=== PATIENT | male | born 1950 | race Caucasian/White ===

== ENCOUNTER 2018-04-22 07:33 | Inpatient (IN) ==
--- NOTE | 2018-04-08 12:38 | Anesthesiology Consultation ---
Date of Service April 08, 2018 Assessment & Plan (1) Encounter for pre-operative examination: Chart Review Chart Review: Acceptable Risk for Surgery and Patient seen in Pre Admission Testing Consults Requested medical (Dr. Wild at [facility] on 04/19 @10:15) Patient was seen at PCP's office on 04/19. Note states "Pt is stable from medical perspective to undergo planned procedure." Teaching & Discussion Pre-Anesthesia Teaching/Discussion Notes: Instructed NPO after midnight before surgery, except medications with 15 cc of water. Medication instructions provided according to the PAT guidelines. History Surgery Operation Date: 04/22/18 09:35 Proposed Procedures p L4-L5 Decompression and Fusion - Inocencio Arciniega DO Height/Weight Height: 5 ft 4 in Weight: 75.1 kg Allergies Allergy/AdvReac Type Severity Reaction Status Date / Time No Known Allergies Allergy Verified 04/22/18 07:59 Medications Home Medications Medication Instructions Recorded Confirmed Last Taken aspirin [Aspirin Low Dose] 81 mg PO DAILY 03/28/18 04/22/18 04/15/18 08:00 atorvastatin [Lipitor] 40 mg PO QAM 03/28/18 04/22/18 04/22/18 04:45 gabapentin 300 mg PO TID 03/28/18 04/22/18 04/22/18 04:45 hydrochlorothiazide 25 mg PO QAM 03/28/18 04/22/18 04/20/18 08:00 hydrocodone-acetaminophen [[place]] 1 tab PO Q6H PRN 03/28/18 04/22/18 04/22/18 04 :45 lisinopril 10 mg PO QAM 03/28/18 04/22/18 04/21/18 08:00 multivitamin 1 tab PO DAILY 03/28/18 04/22/18 04/21/18 08:00 turmeric 400 mg PO DAILY 03/28/18 04/22/18 04/08/18 08:00 Active Medications Generic Name Dose Route Start Last Admin Trade Name Freq PRN Reason Stop Dose Admin Lactated Ringer's 1,000 mls @ 15 mls/hr 04/22/18 06:00 04/22/18 08:48 Lr IV 04/23/18 05:59 15 mls/hr .Q24H ERICKSON Administration Past Medical History Medical History Cancer PROSTATE CANCER (15 YEARS AGO) Chronic back pain Chronic neck pain BULGING DISCS Degenerative disc disease Diverticular disease Hyperlipidemia Hypertension Lyme disease H/O (SUMMER 2016) Osteoarthritis Past Family History Family History Daughter Family history of diabetes mellitus, Onset Age: 10 TYPE 1 DIABETES Son Family history of diabetes mellitus TYPE 2 DIABETES Mother Breast cancer Past Surgical History Surgical History H/O arthroscopic knee surgery x2 on Left, x1 on Right (he thinks) History of carpal tunnel release RIGHT History of cataract surgery LEFT History of cholecystectomy History of colonoscopy History of herniorrhaphy LEFT INGUINAL HERNIA REPAIR History of prostatectomy History of repair of rotator cuff LEFT X2 & RIGHT X1 History of total knee replacement RIGHT KNEE Past Anesthesia History No Hx of Anesthesia Complications and No Family Hx of Anesthesia Complications History of PONV No Motion Sickness Screening History of Motion Sickness: No Social History Smoking Status: Former smoker tobacco type: cigarettes Do You Dip or Chew Tobacco: No Smoking End Date: QUIT 40 YEARS AGO Hx Alcohol Use: Yes Alcohol type: beer alcohol intake frequency: holidays/special occasions only Hx Substance Use: No substance use type: does not use Exercise / Class Metabolic Activity II 4-5 Yardwork/Stairs/Walk up hill (Keeps busy with the wood burner and helping care for his dad. Luma. Limited recently due to back pain. Able to climb stairs. Denies CP or SOB. ) Review of Systems Patient denies chest pain, shortness of breath, dyspnea on exertion, reflux, cough, wheezing, palpitations. +joint pain (back, fingers, elbow) Physical Exam Vital Signs Last Vital Signs Temp 36.7 C 04/22/18 08:09 Pulse 82 04/22/18 08:09 Resp 20 04/22/18 08:09 BP 143/97 H 04/22/18 08:09 Pulse Ox 95 04/22/18 08:09 BP: 152/82 P: 93 R: 18 T: 97.5 SPO2: 96% on RA ENMT Thyromental Distance: > or= 3.5 Finger Breadths (3.5) Mallampati Class: II Neck normal visual inspection and trachea midline Respiratory normal respiratory effort Auscultation: lungs clear to auscultation bilaterally Cardiovascular Rate/Rhythm: regular rate and regular rhythm Heart Sounds: no murmur Vessels: no carotid bruit Neurologic moves all extremities Psychiatric Orientation: alert and oriented x 3 Testing Electrocardiogram Date: 04/08/18 Sinus rhythm with occasional PVC's @ 92bpm. Nonspecific T wave abnormality. When compared with ECG of 07/20/00, PVC's are now present. Chest X-Ray Date: 04/08/18 Findings: + NAD FINDINGS: The lungs are clear. The heart is normal in size. No pleural effusions. No pneumothorax. Mildly eventrated the right hemidiaphragm. Mild kyphosis and severe degenerative changes within the lower thoracic spine. IMPRESSION: No acute process. Laboratory Results 04/08/18 13:26 04/08/18 13:12 Blood Type A Negative 04/08/18 13:26 Antibody Screen NEGATIVE 04/08/18 13:26 PT 10.5 Seconds (9.0-12.0) 04/08/18 13:26 INR 1.0 (0.9-1.1) 04/08/18 13:26 APTT 25.4 Seconds (21.0-31.0) 04/08/18 13:26 Urine Color Yellow 04/08/18 13:26 Urine Appearance Clear (Clear) 04/08/18 13:26 Urine pH 7.5 (4.5-7.5) 04/08/18 13:26 Ur Specific Flasher 1.013 (1.000-1.030) 04/08/18 13:26 Urine Protein Negative (Negative) 04/08/18 13:26 Urine Glucose (UA) Negative (Negative) 04/08/18 13:26 Urine Ketones Negative (Negative) 04/08/18 13:26 Urine Nitrite Negative (Negative) 04/08/18 13:26 Ur Leukocyte Esterase Negative (Negative) 04/08/18 13:26
--- NOTE | 2018-04-08 12:39 | PAT Medication Instructions ---
Medication Instructions Date of Service April 08, 2018 Home Medications aspirin [Aspirin Low Dose] 81 mg PO DAILY atorvastatin [Lipitor] 40 mg PO QAM gabapentin 300 mg PO TID hydrochlorothiazide 25 mg PO QAM hydrocodone-acetaminophen [[place]] 1 tab PO Q6H NEEDED lisinopril 10 mg PO QAM multivitamin 1 tab PO DAILY turmeric 400 mg PO DAILY ASK your surgeon for instructions aspirin [Aspirin Low Dose] 81 mg PO DAILY STOP taking 2 weeks before surgery turmeric 400 mg PO DAILY DO NOT take the morning of surgery hydrochlorothiazide 25 mg PO QAM lisinopril 10 mg PO QAM multivitamin 1 tab PO DAILY Take morning of surgery With a small sip of water, OTHERWISE NOTHING TO EAT OR DRINK AFTER MIDNIGHT: atorvastatin [Lipitor] 40 mg PO QAM gabapentin 300 mg PO TID hydrocodone-acetaminophen [[place]] 1 tab PO Q6H NEEDED (stop 4 hours before surgery) Take evening before surgery gabapentin 300 mg PO TID hydrocodone-acetaminophen [[place]] 1 tab PO Q6H NEEDED Other Notes If you have any questions please call us at [phone] or [phone] or [phone] or [phone]
--- NOTE | 2018-04-08 13:57 | XRay Report ---
XR chest Pre-admission PA/Lat HISTORY: Preop. COMPARISON: None. FINDINGS: The lungs are clear. The heart is normal in size. No pleural effusions. No pneumothorax. Mi ldly eventrated the right hemidiaphragm. Mild kyphosis and severe degenerative changes within the low er thoracic spine. IMPRESSION: No acute process. Electronically signed by: Sudhir Tang M.D. 04/08/2018 1:56 PM
[2018-04-08 14:14] LABS: Basophils # (auto) 0.06 K/uL (0-0.2); Basophils % (auto) 0.6 %; Eosinophils # (auto) 0.19 K/uL (0-0.5); Hematocrit (blood only) 43.9 % (42-52); Immature Granulocytes # (auto) 0.01 K/uL (0.00-0.02); Immature Granulocytes % (auto) 0.1 %; Lymphocytes # (auto) 1.64 K/uL (1.2-3.4); Lymphocytes % (auto) 17.2 %; Mean Corpuscular Hgb Conc 34.2 g/dL (32-36); Mean Corpuscular Volume 91.8 fL (80-100); Mean Platelet Volume 9.9 fL (7.4-10.4); Monocytes # (auto) 0.79 K/uL (0.11-0.59); Monocytes % (auto) 8.3 %; Neutrophils # (auto) 6.82 K/uL (1.4-6.5); Neutrophils % (auto) 71.8 %; Platelet Count 223 K/uL (130-400); RDW Coefficient of Variation 12.6 % (11.5-14.5); RDW Standard Deviation 42.6 fL (36.4-46.3); Red Blood Count 4.78 M/uL (4.7-6.1); White Blood Count 9.51 K/uL (4.8-10.8)
[2018-04-08 14:27] LABS: Partial Thromboplastin Time 25.4 Seconds (21.0-31.0); Prothrombin Time 10.5 Seconds (9.0-12.0)
[2018-04-08 14:32] LABS: BUN Creatinine Ratio 20.8 (10-20); Calcium 9.5 mg/dl (8.5-10.1); Creatinine Clr Calc Pharmacy 61.8 ml/min; Est GFR (African American) 83.2; Est GFR (Non-African American) 71.8; Potassium 4.5 mmol/L (3.5-5.1)
[2018-04-08 14:41] LABS: Appearance Urine Clear (Clear); Bilirubin Urine Negative (Negative); Color Urine Yellow; Glucose Urine UA Negative (Negative); Ketones Urine Negative (Negative); Leukocyte Esterase Urine Negative (Negative); Nitrite Urine Negative (Negative); Protein Urine Negative (Negative); Specific Gravity Urine 1.013 (1.000-1.030); Urobilinogen Urine Negative (Negative); pH Urine 7.5 (4.5-7.5)
[~2018-04-22 07:33] MED LIST: ACETAMINOPHEN 500 MG TAB PO SCH; CEFAZOLIN 1000MG 1,000 MG/7.5 ML SYR IV SCH; CeleBREX 200 MG CAP PO SCH; GABAPENTIN 300 MG PO SCH; LR 15ML/HR IV SCH
[2018-04-22] MEDS ORDERED: ONDANSETRON INJ 2 MG/ML 2 ML VIAL IV PRN ×3 (09:20→17:46)
[2018-04-22] MEDS ORDERED: fentaNYL citrate 100 MCG/2 ML VIAL IV PRN (09:20)
[2018-04-22] MEDS ORDERED: ATROPINE SULFATE 0.1 MG/ML 10ML SYR IV PRN ×2 (09:20→15:27)
[2018-04-22] MEDS ORDERED: ePHEDrine sulfate 50 MG/ML AMP IV PRN ×2 (09:20→15:27)
[2018-04-22] MEDS ORDERED: PROMETHAZINE HCL 6.25 MG in SODIUM CHLORIDE 0.9% 50 ML IV PRN (09:20)
--- NOTE | 2018-04-22 12:13 | History & Physical Bridge Note ---
Date of Service April 22, 2018 History & Physical Bridge Note I have examined the patient, reviewed the History & Physical and in the interval since the performance of the History & Physical I have noted the following changes of clinical significance: no changes noted
--- NOTE | 2018-04-22 12:14 | History & Physical Report ---
Date of Service April 22, 2018 Assessment & Plan (1) Neurogenic claudication due to lumbar spinal stenosis: L4-5 decompression and fusion Present on Admission?: Yes History of Present Illness Chief Complaint: Back and leg pain Primary Care Provider: Leonel Ceja DO This is a 59-year-old male with chronic persistent back and leg pain that is failed extensive course of nonoperative care and is here for surgical intervention. Allergies Allergy/AdvReac Type Severity Reaction Status Date / Time No Known Allergies Allergy Verified 04/22/18 07:59 Home Medications Home Medications Medication Instructions Recorded Confirmed Type aspirin [Aspirin Low Dose] 81 mg PO DAILY 03/28/18 04/22/18 History atorvastatin [Lipitor] 40 mg PO QAM 03/28/18 04/22/18 History gabapentin 300 mg PO TID 03/28/18 04/22/18 History hydrochlorothiazide 25 mg PO QAM 03/28/18 04/22/18 History hydrocodone-acetaminophen [[place]] 1 tab PO Q6H PRN 03/28/18 04/22/18 History lisinopril 10 mg PO QAM 03/28/18 04/22/18 History multivitamin 1 tab PO DAILY 03/28/18 04/22/18 History turmeric 400 mg PO DAILY 03/28/18 04/22/18 History Past Med/Surg History Medical History Cancer PROSTATE CANCER (15 YEARS AGO) Chronic back pain Chronic neck pain BULGING DISCS Degenerative disc disease Diverticular disease Hyperlipidemia Hypertension Lyme disease H/O (SUMMER 2016) Osteoarthritis Surgical History H/O arthroscopic knee surgery x2 on Left, x1 on Right (he thinks) History of carpal tunnel release RIGHT History of cataract surgery LEFT History of cholecystectomy History of colonoscopy History of herniorrhaphy LEFT INGUINAL HERNIA REPAIR History of prostatectomy History of repair of rotator cuff LEFT X2 & RIGHT X1 History of total knee replacement RIGHT KNEE Family History Daughter Family history of diabetes mellitus, Onset Age: 10 TYPE 1 DIABETES Son Family history of diabetes mellitus TYPE 2 DIABETES Mother Breast cancer Social History Current Living Situation: Spouse Other Information That Helps Us Care for You: No Feels Safe at Home: Yes Safety Concerns: Feels Safe At This Time Smoking Status: Former smoker Tobacco Type: cigarettes Do You Dip or Chew Tobacco: No Smoking End Date: QUIT 40 YEARS AGO Hx Alcohol Use: Yes Alcohol type: beer Alcohol Intake Frequency: holidays/ special occasions only Hx Substance Use: No Beliefs That Will Affect Care: None Preferred Language: Venezuelan Communication Ability: Effective Senior Examiner Required: No Physical Exam 2 Vital Signs (Past 24 Hours): Last Vital Signs Temp 36.7 C 04/22/18 08:09 Pulse 82 04/22/18 08:09 Resp 20 04/22/18 08:09 BP 143/97 H 04/22/18 08:09 Pulse Ox 95 04/22/18 08:09 Results & Data Medications Administered Acetaminophen (Tylenol) 1,000 mg PO PREOP [facility] Stop: 04/22/18 18:00 Last Admin: 04/22/18 11:36 Dose: 1,000 mg Celecoxib (Celebrex) 200 mg PO PREOP [facility] Stop: 04/22/18 18:00 Last Admin: 04/22/18 11:36 Dose: 200 mg Gabapentin (Neurontin) 300 mg PO PREOP ERICKSON Stop: 04/22/18 18:00 Last Admin: 04/22/18 11:36 Dose: 300 mg Lactated Ringer's (Lr) 1,000 mls @ 15 mls/hr IV .Q24H ERICKSON Stop: 04/23/18 05:59 Last Admin: 04/22/18 08:48 Dose: 15 mls/hr
[2018-04-22] MEDS ORDERED: BUPIVACAINE/EPINEPHRINE 0.5% MPF 1:200,000 30 ML VIAL ONE (12:25)
[2018-04-22] MEDS ORDERED: BACITRACIN INJ 50,000 UNIT VIAL ONE (12:25)
[2018-04-22] MEDS ORDERED: MIDAZOLAM HCL 1 MG/ML 2ML VIAL ONE (12:39)
[2018-04-22] MEDS ORDERED: fentaNYL citrate 100 MCG/2 ML VIAL ONE ×3 (12:39→15:25)
[2018-04-22] MEDS ORDERED: ONDANSETRON INJ 2 MG/ML 2 ML VIAL ONE (13:04)
[2018-04-22] MEDS ORDERED: DEXAMETHASONE SOD INJ 4 MG/ML VIAL ONE (13:04)
[2018-04-22] MEDS ORDERED: PROPOFOL IV EMULSION 10 MG/ML 20 ML VIAL IV ONE (13:04)
[2018-04-22] MEDS ORDERED: HYDROmorphone INJ 2 MG/ML SYR/VIAL ONE (13:06)
[2018-04-22] MEDS ORDERED: PHENYLEPHRINE 100MCG/ML 5ML SYR ONE (13:44)
[2018-04-22] MEDS ORDERED: NEOSTIGMINE METHYLSULFATE 1 MG/ML 10ML VIAL ONE (13:44)
[2018-04-22] MEDS ORDERED: ePHEDrine sulfate 50 MG/ML AMP ONE (13:44)
[2018-04-22] MEDS ORDERED: ROCURONIUM BROMIDE 10 MG/ML 5 ML VIAL ONE (13:44)
[2018-04-22] MEDS ORDERED: GLYCOPYRROLATE 0.2 MG/ML VIAL ONE (13:44)
[2018-04-22] MEDS ORDERED: FLOSEAL HEMOSTATIC MATRIX 10ML TOP ONE (14:42)
--- NOTE | 2018-04-22 14:49 | Fluoroscopy Report ---
FL lumbar spine 2-3V CLINICAL HISTORY: L4-L5 DECOMPRESSION AND FUSION COMPARISON STUDY: None FLUOROSCOPY TIME: 24 seconds. NUMBER OF FLUOROSCOPIC IMAGES: 2 FINDINGS: 2 intraoperative fluoroscopic spot images reveal postsurgical changes of an L4-5 discectomy and interbody fusion. There is posterior pedicle screw fixation with adjoining spinal rods. There is a laminectomy defect. There is a grade 1 spondylolisthesis of L4 on L5. IMPRESSION: Postsurgical changes of an L4-5 spinal decompression and fusion Electronically signed by: Edgar Schneider M.D. 04/22/2018 2:47 PM
--- NOTE | 2018-04-22 14:52 | Operative Report ---
Post Operative Report Pre & Post Diagnosis Operation Date: 04/22/18 09:35 Pre-Op Diagnosis: Neurogenic claudication due to lumbar spinal stenosis Post-Op Diagnosis: Neurogenic claudication due to lumbar spinal stenosis Procedure Operation Date: 04/22/18 09:35 Actual Procedures #1 lumbar decompression medial vasectomies foraminotomies L3-4 L4-5. #2 posterior spinal fusion L4-5 per #3 please posterior his mentation L4-5 per #4 interbody fusion L5 per #5 placement of 9 x 22 mm titanium cage L4-5 per #6 placement of local autograft in the posterior lateral gutters. #7 placement infuse collagen sponge bone mass graft posterior gutters and ostial amp and interbody space. Surgeon Inocencio Arciniega, Bilingual Instructor Nitza Ricketts Estimated Blood Loss 100 Findings Consistent with Post-Op Diagnosis Specimens None Description of Procedure She was met with preoperatively case discussed all questions addressed. After informed consent obtained patient was taken to the operative suite underwent intubation placed in a prone position on the Chang table on top of the Derrick frame. All bony prominences well-padded eyes inspected to ensure no external pressure placed upon the peer at this point the lumbar spine was prepped and draped in a normal sterile fashion. Sharp dissection with the assistance of Bovie cautery was performed down to and exposing the lamina and transverse process of L4-5. From a caudal cephalad fashion complete laminectomy of L4 partial laminectomy of L3 was performed including bilateral medial vasectomies foraminotomies addressing severe lateral recess and foraminal stenosis. After this complete pedicle screws were placed in L4-L5 bilaterally with assistance of fluoroscopy and process beth placed. The transforaminal approach and left complete discectomy was performed in plate coated to subcortical bleeding bone and a 9 x 22 mm titanium cage filled with ostium bone graft tapped in position. The rods were then compressed locked into final position bilaterally. Transverse processes of L4 and L5 bur to subcortical bleeding bone. Infuse collagen sponge mass graft local autograft placed in the posterior gutters. 15 round MARIA LUZ drain inserted. Incision was then closed with 1 Vicryl fascia 2-0 Vicryl subcutaneously and 4-0 Monocryl for final skin closure. Steri-Strips sterile dressings placed. Patient will continue to PACU stable disc. Please note Nitza Ricketts present at the entire procedure involved in patient positioning complex portions of the surgery and fashion closure. I attest to the content of the Intraoperative Record and any orders documented therein. Any exceptions are noted below.
[2018-04-22] MEDS ORDERED: VASOPRESSIN 20 UNIT/ML VIAL ONE (15:10)
[2018-04-22] MEDS: fentaNYL citrate 100 MCG/2 ML VIAL IV PRN ×2 (15:25→15:30)
--- NOTE | 2018-04-22 15:43 | Anesthesiology Progress Note ---
Date of Service April 22, 2018 Anesthesia Post Procedure Vital Signs Vital Signs: Temp Pulse Pulse Resp BP Pulse Ox 04/22/18 15:30 82 15 102/60 100 04/22/18 15:20 85 16 111/52 L 100 04/22/18 15:10 88 28 H 120/49 L 98 04/22/18 15:01 97.0 F L 98 H 17 107/51 L 98 04/22/18 08:09 98.1 F 82 20 143/97 H 95 Pain Intensity Right Leg: Pain Intensity: 1 Back: Pain Intensity: 4 Notes Mental Status: alert / awake / arousable and participated in evaluation Patient Amnestic to Procedure: Yes Nausea / Vomiting: adequately controlled Pain: adequately controlled Airway Patency, RR, SpO2: stable & adequate BP & HR: stable & adequate Hydration State: stable & adequate Anesthetic Complications: no major complications apparent and Pt Satisfied with anesthetic care
--- NOTE | 2018-04-22 17:43 | Hospitalist Consultation ---
Date of Consultation April 22, 2018 Assessment & Plan (1) Neurogenic claudication due to lumbar spinal stenosis: - S/p lumbar fusion this afternoon. - Pain management per primary team. - Monitor CBC qAM to evaluate for blood loss. - PT/OT evaluation. (2) Atrial fibrillation with RVR: - Developed A. fib with RVR during procedure, confirmed by EKG. No documented h/o A. fib. - Will order lab work and replace electrolytes if necessary. - TTE pending; no documented TTE in past. - Start Metoprolol 25 mg BID. - Lba1nd-Ttpr score 2 -- discussed with Dr. Arciniega, will hold anticoagulation due to recent back surgery/increased risk of bleeding. - Trend troponin q6hr. (3) Acute respiratory failure with hypoxia: - Currently requiring 4L via NC post operatively. - Wean as tolerated. (4) Hyperlipidemia: - Continue Lipitor as prescribed. (5) Hypertension: - Hold HCTZ and Lisinopril pending labs to evaluate renal function. - Started Metoprolol as noted above. (6) Prostate cancer: - Diagnosed ~15 years ago. (7) DVT prophylaxis: - Per primary team. Dispo: Will continue to follow. Supervising Physician Co-Signing Physician Notes PA Supervision Note: I personally saw and examined the patient. I verified all larkin points and agree with NATE Recinos with the following exceptions and/or additions: This pt is a 67 yo male with a h/o HTN, HL, GERD, lumbar stenosis with neurogenic claudication, IFG, and prostate CA, who is here s/p lumbar fusion and developed Rapid A-fib in the PACU which was documented by Anesthesia at 1645 approximately. Rates as above. By the time he arrived on the MICU, he had a few brief runs of atrial tachycardia and then converted to NSR around 1745. He denies any awareness of his arrhythmia, no CP or SOB. No previous h/o Afib, no h/o TIA/CVA, CHF, CAD, DMII (but has IFG noted in outpt records). He denies a h/o bleeding ever (no ICH,GI bleeding, hematuria, etc.) History as above Vitals reviewed NAD, AAO x 3 RRR no mgr CTAB no wcr Abd soft NT ND Ext no calf tenderness, no edema ECG reviewed and shows A-fib, rapid rate, TWIs leads V5-6 changed from previous 67 yo male with a history as above, here with brief atrial fibrillation in the immediate post-op setting. -start metoprolol 25mg po bid for rate control in case goes back into A-fib HOLD ALL ANTICOAGULATION as above for at least 48 hours given lumbar spine surgery as per my discussion with Ortho SPine Surgeon -Consult Cardiology for further recommendations--> should he be anticoagulated if this is to be considered lone A-fib, triggered by Surgery? -check ECHO -monitor on tele -trend trops due to mild TWIs on ECG -check ECG in AM History of Present Illness Reason for Consultation: Medical Management Attending Physician: Inocencio Arciniega DO History of Present Illness Mr. Martin is a 67 year old male with history of prostate cancer, DJD, HLD, HTN, Osteoarthritis, GERD, impaired fasting glucose, and chronic back pain who presented for a planned lumbar fusion. He developed A. fib with RVR during the procedure, HR 110-120's. Pt. has no documented h/o A. fib in the past. Allergies Allergy/AdvReac Type Severity Reaction Status Date / Time No Known Allergies Allergy Verified 04/22/18 07:59 Home Medications Home Medications Medication Instructions Recorded Confirmed Type aspirin [Aspirin Low Dose] 81 mg PO DAILY 03/28/18 04/22/18 History atorvastatin [Lipitor] 40 mg PO QAM 03/28/18 04/22/18 History gabapentin 300 mg PO TID 03/28/18 04/22/18 History hydrochlorothiazide 25 mg PO QAM 03/28/18 04/22/18 History hydrocodone-acetaminophen [[place]] 1 tab PO Q6H PRN 03/28/18 04/22/18 History lisinopril 10 mg PO QAM 03/28/18 04/22/18 History multivitamin 1 tab PO DAILY 03/28/18 04/22/18 History turmeric 400 mg PO DAILY 03/28/18 04/22/18 History Patient History Medical History GERD (gastroesophageal reflux disease) Impaired fasting glucose Cancer PROSTATE CANCER (15 YEARS AGO) Chronic back pain Chronic neck pain BULGING DISCS Degenerative disc disease Diverticular disease Hyperlipidemia Hypertension Lyme disease H/O (SUMMER 2016) Osteoarthritis Surgical History H/O arthroscopic knee surgery x2 on Left, x1 on Right (he thinks) History of carpal tunnel release RIGHT History of cataract surgery LEFT History of cholecystectomy History of colonoscopy History of herniorrhaphy LEFT INGUINAL HERNIA REPAIR History of prostatectomy History of repair of rotator cuff LEFT X2 & RIGHT X1 History of total knee replacement RIGHT KNEE Family History Daughter Family history of diabetes mellitus, Onset Age: 10 TYPE 1 DIABETES Son Family history of diabetes mellitus TYPE 2 DIABETES Mother Breast cancer Social History Current Living Situation: Spouse Other Information That Helps Us Care for You: No Feels Safe at Home: Yes Safety Concerns: Feels Safe At This Time Smoking Status: Former smoker Tobacco Type: cigarettes Do You Dip or Chew Tobacco: No Smoking End Date: QUIT 40 YEARS AGO Hx Alcohol Use: Yes Alcohol type: beer Alcohol Intake Frequency: holidays/ special occasions only Hx Substance Use: No Beliefs That Will Affect Care: None Preferred Language: Pashto Communication Ability: Effective Occ Ther Required: No Review of Systems 12 point R.O.S. negative unless specified above in HPI. Physical Exam 2 Vital Signs (Past 24 Hours): Last Vital Signs Temp 36.3 C L 04/22/18 15:50 Pulse 118 H 04/22/18 17:30 Resp 16 04/22/18 17:30 BP 114/70 04/22/18 17:30 Pulse Ox 96 04/22/18 17:30 Physical Exam: General: Resting comfortably in no apparent distress HEENT: NC/AT; PERRLA with EOMI; [place] conjunctiva, MMM. Neck: Supple and nontender Cardiac: Irregular Lungs: CTA bilaterally; No rhonchi, wheezing, or rales Abdomen: Bowel normoactive X 4; Nontender to palpation Extremities: Warm. No edema present Neuro: No focal weakness Skin: No rash Results & Data ECG Additional Comments: EKG showed A. fib with RVR, HR 121 bpm, with some TWIs V5-6
[2018-04-22] MEDS ORDERED: ACETAMINOPHEN 500 MG TAB PO PRN (17:46)
[2018-04-22] MEDS ORDERED: ACETAMINOPHEN 1,000 MG/100 ML VIAL IV PRN (17:46)
[2018-04-22] MEDS ORDERED: HYDROmorphone INJ 0.5 MG/0.5 ML SYR IV PRN (17:46)
[2018-04-22] MEDS ORDERED: ONDANSETRON 4 MG TAB PO PRN (17:46)
[2018-04-22] MEDS ORDERED: PROMETHAZINE HCL 12.5 MG in SODIUM CHLORIDE 0.9% 50 ML IV PRN (17:46)
[2018-04-22] MEDS ORDERED: SOD PHOSPHATE/SOD BIPHOSPHATE ENEMA 132 ML BTL PR PRN (17:46)
[2018-04-22] MEDS ORDERED: DO NOT ADMINISTER FLU VACCINE PRN (17:46)
[2018-04-22] MEDS ORDERED: MAGNESIUM HYDROXIDE SUSP 30 ML UDC PO PRN (17:46)
[2018-04-22] MEDS ORDERED: ALUMINUM/MAGNESIUM SUSP 30 ML UDC PO PRN (17:46)
[2018-04-22] MEDS ORDERED: DO NOT ADMINISTER PNEUMOCOCCAL VACCINE PRN (17:46)
[2018-04-22] MEDS ORDERED: METOCLOPRAMIDE HCL INJ 5 MG/ML 2 ML VIAL IV PRN (17:46)
[2018-04-22] MEDS ORDERED: HYDROCODONE/ACETAMOPHEN 5/325MG TAB PO PRN (17:46)
[2018-04-22] MEDS ORDERED: LORazepam 0.5 MG TAB PO PRN (17:46)
[2018-04-22] MEDS ORDERED: BISACODYL 10 MG SUPP PR PRN (17:46)
[2018-04-22] MEDS ORDERED: LORazepam 0.5 MG/1 ML VIAL IV PRN (17:46)
[2018-04-22] MEDS ORDERED: FAMOTIDINE 20 MG TAB PO PRN (17:46)
[2018-04-22] MEDS: LACTATED RINGER'S 1,000 ML IV SCH ×2 (18:14→20:17)
[2018-04-22 18:47] LABS: Hematocrit (blood only) 36.2 % (42-52); Hemoglobin 12.4 g/dL (14.0-18.0); Mean Corpuscular Hgb Conc 34.3 g/dL (32-36); Mean Corpuscular Volume 92.1 fL (80-100); Platelet Count 179 K/uL (130-400); RDW Coefficient of Variation 12.3 % (11.5-14.5); RDW Standard Deviation 41.8 fL (36.4-46.3); Red Blood Count 3.93 M/uL (4.7-6.1)
[2018-04-22 19:04] LABS: BUN Creatinine Ratio 21.7 (10-20); Blood Urea Nitrogen 22 mg/dl (7-18); Calcium 8.6 mg/dl (8.5-10.1); Carbon Dioxide 26 mmol/L (21-32); Chloride 104 mmol/L (98-107); Creatinine Clr Calc Pharmacy 66.2 ml/min; Est GFR (African American) 90.3; Est GFR (Non-African American) 77.9; Glucose 146 mg/dl (70-99); Magnesium 1.9 mg/dl (1.8-2.4); Potassium 3.9 mmol/L (3.5-5.1); Sodium 138 mmol/L (136-145)
[2018-04-22 19:09] LABS: Troponin I < 0.015 ng/ml (0-0.045)
[2018-04-22] MEDS: KETOROLAC TROMETHAMINE 15 MG/ML VIAL IV SCH (19:23)
[2018-04-22] MEDS: CEFAZOLIN 1000MG 1,000 MG/7.5 ML SYR IV SCH (19:23)
[2018-04-22] MEDS: DOCUSATE SODIUM/SENNA 50/8.6MG TAB PO SCH (20:15)
[2018-04-22] MEDS: METOPROLOL TARTRATE 25 MG TAB PO SCH (20:16)
[2018-04-22] MEDS: GABAPENTIN 300 MG CAP PO SCH (20:16)
[2018-04-22] MEDS ORDERED: MAGNESIUM SULFATE / D5W 1 GM/100 ML BAG IV ONE (22:09)
[2018-04-22] MEDS ORDERED: POTASSIUM CHLORIDE 10 MEQ TABCR PO STA (22:09)
[2018-04-23] MEDS: KETOROLAC TROMETHAMINE 15 MG/ML VIAL IV SCH ×3 (02:02→14:45)
[2018-04-23] MEDS: CEFAZOLIN 1000MG 1,000 MG/7.5 ML SYR IV SCH (03:46)
[2018-04-23] MEDS: POLYETHYLENE (MIRALAX) 17 GM PACK PO SCH ×4 (05:44→20:54)
[2018-04-23 06:34] LABS: Eosinophils # (auto) 0.01 K/uL (0-0.5); Eosinophils % (auto) 0.1 %; Hematocrit (blood only) 33.7 % (42-52); Hemoglobin 11.6 g/dL (14.0-18.0); Immature Granulocytes # (auto) 0.04 K/uL (0.00-0.02); Immature Granulocytes % (auto) 0.3 %; Lymphocytes # (auto) 1.01 K/uL (1.2-3.4); Lymphocytes % (auto) 6.6 %; Mean Corpuscular Hgb Conc 34.4 g/dL (32-36); Mean Corpuscular Volume 91.1 fL (80-100); Mean Platelet Volume 9.3 fL (7.4-10.4); Monocytes # (auto) 1.58 K/uL (0.11-0.59); Monocytes % (auto) 10.3 %; Neutrophils # (auto) 12.74 K/uL (1.4-6.5); Neutrophils % (auto) 82.7 %; Platelet Count 189 K/uL (130-400); RDW Coefficient of Variation 12.4 % (11.5-14.5); RDW Standard Deviation 41.3 fL (36.4-46.3); White Blood Count 15.38 K/uL (4.8-10.8)
[2018-04-23 07:10] LABS: BUN Creatinine Ratio 23.2 (10-20); Blood Urea Nitrogen 20 mg/dl (7-18); Calcium 8.6 mg/dl (8.5-10.1); Carbon Dioxide 27 mmol/L (21-32); Chloride 104 mmol/L (98-107); Creatinine Clr Calc Pharmacy 74.5 ml/min; Est GFR (African American) 102.3; Est GFR (Non-African American) 88.3; Glucose 109 mg/dl (70-99); Potassium 4.4 mmol/L (3.5-5.1); Sodium 136 mmol/L (136-145)
[2018-04-23 07:14] LABS: Troponin I < 0.015 ng/ml (0-0.045)
--- NOTE | 2018-04-23 08:16 | Anesthesiology Progress Note ---
Date of Service April 23, 2018 Anesthesia Post Procedure Vital Signs Vital Signs: Temp Pulse Resp BP Pulse Ox 04/23/18 07:28 37.2 C 90 19 121/69 96 04/23/18 03:23 37.0 C 72 18 123/72 96 04/22/18 23:22 37.0 C 86 18 126/65 97 04/22/18 20:16 36.9 C 93 H 16 104/60 96 04/22/18 19:16 36.9 C 119 H 20 115/62 95 04/22/18 17:49 36.4 C L 100 H 16 130/74 98 04/22/18 17:30 118 H 16 114/70 96 04/22/18 17:15 125 H 14 120/70 98 04/22/18 17:00 118 H 12 114/66 99 04/22/18 16:45 102 H 10 L 118/63 98 04/22/18 16:30 93 H 14 126/68 99 04/22/18 16:15 89 15 115/59 L 99 04/22/18 16:00 82 19 108/62 97 04/22/18 15:50 36.3 C L 79 13 109/60 98 04/22/18 15:40 36.1 C L 92 H 12 118/64 100 04/22/18 15:30 82 15 102/60 100 04/22/18 15:20 85 16 111/52 L 100 04/22/18 15:10 88 28 H 120/49 L 98 04/22/18 15:01 36.1 C L 98 H 17 107/51 L 98 Pain Intensity Right Leg: Pain Intensity: 1 Back: Pain Intensity: 4 Notes Mental Status: alert / awake / arousable Patient Amnestic to Procedure: Yes Nausea / Vomiting: adequately controlled Pain: improving with treatment Airway Patency, RR, SpO2: stable & adequate BP & HR: stable & adequate Hydration State: stable & adequate Anesthetic Complications: no major complications apparent
[2018-04-23] MEDS ORDERED: hydroCHLOROthiazide 25 MG TAB PO SCH (09:00)
[2018-04-23] MEDS ORDERED: TURMERIC 400 MG PO SCH (09:00)
[2018-04-23] MEDS ORDERED: LISINOPRIL 10 MG TAB PO SCH (09:00)
[2018-04-23] MEDS: hydroCHLOROthiazide 25 MG TAB PO SCH (09:06)
[2018-04-23] MEDS: LISINOPRIL 10 MG TAB PO SCH (09:06)
[2018-04-23] MEDS: METOPROLOL TARTRATE 25 MG TAB PO SCH ×2 (09:06→20:55)
[2018-04-23] MEDS: GABAPENTIN 300 MG CAP PO SCH ×3 (09:06→20:55)
[2018-04-23] MEDS: MULTIVITAMIN TAB PO SCH (09:08)
[2018-04-23] MEDS: ATORVASTATIN 40 MG TAB PO SCH (09:08)
[2018-04-23] MEDS: ASPIRIN 81 MG ECTAB PO SCH (09:08)
--- NOTE | 2018-04-23 09:51 | Cardiology Consultation ---
Date of Consultation April 23, 2018 Assessment & Plan (1) Atrial fibrillation with RVR: Patient reportedly had atrial fibrillation in the postoperative anesthesia care unit. EKG was obtained at that time demonstrated an atrial arrhythmias that was not definitely atrial fibrillation. Telemetry monitoring since admission has not revealed atrial fibrillation. He has had atrial ectopy and some episodes of what appear to be in atrial tachycardia. He is not appear to have symptoms related to the arrhythmia. It is very possible that this is been longstanding in nature. The episodes themselves are relatively brief. An echocardiogram is pending. In the absence of significant LV dysfunction or structural abnormality, he may require no specific treatment. I am not confident that we have definitively established the presence of atrial fibrillation. Definite atrial fibrillation is the only indication for anticoagulation. Frequent atrial ectopy does produce an increased risk of developing atrial fibrillation. It seems he will be in the hospital for at least another 24-36 hours. Will continue monitoring him on telemetry. Would not initiate anticoagulation currently. Addition of a beta-solitario to his medical regimen seems reasonable provided he has no side effects or hemodynamic compromise. Present on Admission?: Yes History of Present Illness Reason for Consultation: Atrial fibrillation Requesting Physician: Ari Attending Physician: Inocencio Arciniega, DO History of Present Illness The patient is a 59-year-old gentleman with a history of hypertension but no other known cardiac disease who presented for back surgery due to symptomatic spinal stenosis. For some time the patient has been struggling with buttock and leg discomfort. He did not have relief with standard injection therapy and underwent surgery yesterday for this condition. Reportedly, the patient had atrial fibrillation in the post anesthesia care unit. An EKG was obtained at that time and the patient was transferred to the telemetry burgos for observation. Did not appear to be any hemodynamic compromise or symptoms associated with this arrhythmia. Patient states that in general he is an active individual who was accustomed to hunting and outdoor activity. However, over the past year he has had several procedures and then began having some symptoms associated with his spinal disease. He has some difficulty with ambulation as result. However, leading up to this year he did not report symptoms of limiting dyspnea or any exertional chest discomfort. He does not have orthopnea or paroxysmal nocturnal dyspnea. He does not generally get dizzy or lightheaded and has not been aware of any palpitations. He cannot recall an episode of syncope. This morning he was actually feeling quite well. He states that the numbness and tingling in the usually has in his right hand is improved. He also feels that his chronic leg pain is improved. Allergies Allergy/AdvReac Type Severity Reaction Status Date / Time No Known Allergies Allergy Verified 04/22/18 07:59 Home Medications Home Medications Medication Instructions Recorded Confirmed Type aspirin [Aspirin Low Dose] 81 mg PO DAILY 03/28/18 04/22/18 History atorvastatin [Lipitor] 40 mg PO QAM 03/28/18 04/22/18 History gabapentin 300 mg PO TID 03/28/18 04/22/18 History hydrochlorothiazide 25 mg PO QAM 03/28/18 04/22/18 History hydrocodone-acetaminophen [Ozone] 1 tab PO Q6H PRN 03/28/18 04/22/18 History lisinopril 10 mg PO QAM 03/28/18 04/22/18 History multivitamin 1 tab PO DAILY 03/28/18 04/22/18 History turmeric 400 mg PO DAILY 03/28/18 04/22/18 History Patient History Medical History GERD (gastroesophageal reflux disease) Impaired fasting glucose Cancer PROSTATE CANCER (15 YEARS AGO) Chronic back pain Chronic neck pain BULGING DISCS Degenerative disc disease Diverticular disease Hyperlipidemia Hypertension Lyme disease H/O (SUMMER 2016) Osteoarthritis Surgical History H/O arthroscopic knee surgery x2 on Left, x1 on Right (he thinks) History of carpal tunnel release RIGHT History of cataract surgery LEFT History of cholecystectomy History of colonoscopy History of herniorrhaphy LEFT INGUINAL HERNIA REPAIR History of prostatectomy History of repair of rotator cuff LEFT X2 & RIGHT X1 History of total knee replacement RIGHT KNEE Family History Daughter Family history of diabetes mellitus, Onset Age: 10 TYPE 1 DIABETES Son Family history of diabetes mellitus TYPE 2 DIABETES Mother Breast cancer Social History Current Living Situation: Spouse Other Information That Helps Us Care for You: No Feels Safe at Home: Yes Safety Concerns: Feels Safe At This Time Smoking Status: Former smoker Tobacco Type: cigarettes Do You Dip or Chew Tobacco: No Smoking End Date: QUIT 40 YEARS AGO Hx Alcohol Use: Yes Alcohol type: beer Alcohol Intake Frequency: holidays/ special occasions only Hx Substance Use: No Beliefs That Will Affect Care: None Preferred Language: [place] Communication Ability: Effective Graphic Designer Required: No Review of Systems Complete. Pertinent positives known history of present illness. Physical Exam 2 Vital Signs (Past 24 Hours): Last Vital Signs Temp 37.2 C 04/23/18 07:28 Pulse 90 04/23/18 07:28 Resp 19 04/23/18 07:28 BP 121/69 04/23/18 07:28 Pulse Ox 96 04/23/18 07:28 Physical Exam: The patient is alert and oriented. Mood and affect appeared normal. He answered all questions appropriately. HEENT: Pupils are equal and reactive to light and accommodation. Extraocular movements are intact. The sclerae are anicteric. Neuro: Cranial nerves intact Neck: Patient's neck is supple. He has palpable carotid pulses bilaterally without bruits on auscultation. There is no evidence of jugular venous distention. The thyroid is not enlarged. Lungs: Clear to auscultation bilaterally. He has good air movement without use of accessory muscles. No rales wheezes or rhonchi. Cardiac: Heart demonstrates a regular rate and rhythm with occasional ectopy. Normal S1 and S2. No murmurs on examination. Back: patient does have a train currently on grenade suction. Pulses: The patient has palpable radial pulses bilaterally that are equal in intensity Extremities: There was no evidence of hypoperfusion. There is no cyanosis or clubbing. There is no edema. Skin: I did not appreciate any rashes on examination today. Results & Data Laboratory Results Abnormal Lab Results 04/22/18 04/22/18 04/23/18 18:35 18:35 00:56 WBC 13.70 H RBC 3.93 L Hgb 12.4 L Hct 36.2 L MCV 92.1 MCH 31.6 MCHC 34.3 RDW Std Deviation 41.8 RDW Coeff of Cecily 12.3 Plt Count 179 MPV 9.0 Immature Gran % (Auto) Neut % (Auto) Lymph % (Auto) [place] % (Auto) Eos % (Auto) Baso % (Auto) Immature Gran # (Auto) Neut # (Auto) Lymph # (Auto) [place] # (Auto) Eos # (Auto) Baso # (Auto) Sodium 138 Potassium 3.9 Chloride 104 Carbon Dioxide 26 Anion Gap 8.0 BUN 22 H Creatinine 0.99 Est Cr Clr Drug Dosing 66.2 Est GFR ( Amer) 90.3 Est GFR (Non-Af Amer) 77.9 BUN/Creatinine Ratio 21.7 H Glucose 146 H Calcium 8.6 Magnesium 1.9 Troponin I < 0.015 < 0.015 Specimen Hemolysis 04/23/18 04/23/18 04/23/18 00:56 06:23 06:23 WBC 15.38 H RBC 3.70 L Hgb 11.6 L Hct 33.7 L MCV 91.1 MCH 31.4 MCHC 34.4 RDW Std Deviation 41.3 RDW Coeff of Cecily 12.4 Plt Count 189 MPV 9.3 Immature Gran % (Auto) 0.3 Neut % (Auto) 82.7 Lymph % (Auto) 6.6 [place] % (Auto) 10.3 Eos % (Auto) 0.1 Baso % (Auto) 0.0 Immature Gran # (Auto) 0.04 H Neut # (Auto) 12.74 H Lymph # (Auto) 1.01 L [place] # (Auto) 1.58 H Eos # (Auto) 0.01 Baso # (Auto) 0.00 Sodium 136 Potassium 4.4 Chloride 104 Carbon Dioxide 27 Anion Gap 5.0 BUN 20 H Creatinine 0.88 Est Cr Clr Drug Dosing 74.5 Est GFR ( Amer) 102.3 Est GFR (Non-Af Amer) 88.3 BUN/Creatinine Ratio 23.2 H Glucose 109 H Calcium 8.6 Magnesium 2.4 Troponin I < 0.015 Specimen Hemolysis ECG Additional Comments: Normal sinus rhythm with occasional PVCs versus aberrant conduction and frequent atrial ectopy sometimes sustained.
--- NOTE | 2018-04-23 11:45 | Hospitalist Progress Note ---
Date of Service April 23, 2018 Assessment & Plan (1) Neurogenic claudication due to lumbar spinal stenosis: - S/p lumbar fusion on 04/22/18, POD#1. - Pain management per primary team. - Monitor CBC qAM to evaluate for blood loss. - PT/OT ordered - plan for discharge to home. - Continue Gabapentin 300 mg TID. (2) Atrial fibrillation with RVR: - Developed ?A. fib with RVR post operatively; has no documented h/o A. fib. 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 - TTE showed EF 40-45%, grade I diastolic dysfunction. - Trop negative x 2; repeat EKG this morning showed sinus rhythm with frequent PVCs. - Started Metoprolol 25 mg BID. - Consulted cardiology, is not confirmed A. fib -- anticoagulation therapy not indicated, can continue BB. (3) Chronic combined systolic and diastolic heart failure: - TTE showed EF 40-45%, grade I diastolic dysfunction. - Started BB as noted above. - Monitor weights and I/O's. (4) Acute respiratory failure with hypoxia: - Weaned to room air. - Continue to monitor. (5) Hyperlipidemia: - Continue Lipitor & Aspirin as prescribed. (6) Hypertension: - Resume HCTZ and Lisinopril. - Started Metoprolol as noted above. (7) Prostate cancer: - Diagnosed ~15 years ago. (8) DVT prophylaxis: - Per primary team. Dispo: Will continue to follow, please call with any questions. Supervising Physician Co-Signing Physician Notes Attending Attestation - Chart reviewed in detail, and care plan d/w NATE Gómez. I agree w/ the larkin components of her documentation. Pt thought to have developed PAF - this was not the case as monitoring/EKG is c/ w NSR. Echo, however, with reduced LV dysfunction. Cardiology has been consulted. Labs/vitals acceptable at this time. Berny Orozco MD Subjective Pt. is doing well overall, has pain in back. Has been in NSR on landscape gardener , no further atrial rhythms identified. Cardiology consulted, did not feel pt. went into A. fib yesterday. Agree with Metoprolol; anticoagulation is not necessary at this time. Pt. has not had a BM yet; will continue to monitor. PT/ OT ordered. Review of Systems All systems reviewed & are unremarkable except as noted in HPI & below Constitutional: no fever, no chills and no weakness Respiratory: no cough and no dyspnea Cardiovascular: no chest pain, no palpitations and no edema Gastrointestinal: + constipation; no abdominal pain and no nausea Genitourinary (Male): no difficulty urinating Musculoskeletal: + back pain Allergy / Immunological: no rash Physical Exam 2 Vital Signs (Past 24 Hours): Last Vital Signs Temp 37.0 C 04/23/18 11:04 Pulse 72 04/23/18 11:04 Resp 19 04/23/18 11:04 BP 123/73 04/23/18 11:04 Pulse Ox 96 04/23/18 11:04 Physical Exam: General: Resting comfortably in no apparent distress HEENT: NC/AT; PERRLA with EOMI; [place] conjunctiva, MMM. Neck: Supple and nontender Cardiac: Regular rate and rhythm. Lungs: CTA bilaterally; No rhonchi, wheezing, or rales Abdomen: Bowel normoactive X 4; Nontender to palpation Extremities: Warm. No edema present Neuro: No focal weakness Skin: No rash Results & Data Laboratory Results 04/23/18 04/23/18 04/23/18 Range/Units 06:23 06:23 00:56 WBC 15.38 H (4.8-10.8) K/uL RBC 3.70 L (4.7-6.1) M/uL Hgb 11.6 L (14.0-18.0) g/dL Hct 33.7 L (42-52) % MCV 91.1 (80-100) fL MCH 31.4 (25-34) pg MCHC 34.4 (32-36) g/dL RDW Std Deviation 41.3 (36.4-46.3) fL RDW Coeff of Cecily 12.4 (11.5-14.5) % Plt Count 189 (130-400) K/uL MPV 9.3 (7.4-10.4) fL Immature Gran % (Auto) 0.3 % Neut % (Auto) 82.7 % Lymph % (Auto) 6.6 % Allen % (Auto) 10.3 % Eos % (Auto) 0.1 % Baso % (Auto) 0.0 % Immature Gran # (Auto) 0.04 H (0.00-0.02) K/uL Neut # (Auto) 12.74 H (1.4-6.5) K/uL Lymph # (Auto) 1.01 L (1.2-3.4) K/uL Allen # (Auto) 1.58 H (0.11-0.59) K/uL Eos # (Auto) 0.01 (0-0.5) K/uL Baso # (Auto) 0.00 (0-0.2) K/uL Sodium 136 (136-145) mmol/L Potassium 4.4 (3.5-5.1) mmol/L Chloride 104 (98-107) mmol/L Carbon Dioxide 27 (21-32) mmol/L Anion Gap 5.0 (3-11) BUN 20 H (7-18) mg/dl Creatinine 0.88 (0.6-1.4) mg/dl Est Cr Clr Drug Dosing 74.5 ml/min Est GFR ( Amer) 102.3 Est GFR (Non-Af Amer) 88.3 BUN/Creatinine Ratio 23.2 H (10-20) Glucose 109 H (70-99) mg/dl Calcium 8.6 (8.5-10.1) mg/dl Magnesium 2.4 (1.8-2.4) mg/dl Troponin I < 0.015 (0-0.045) ng/ml Specimen Hemolysis 04/23/18 04/22/18 04/22/18 Range/Units 00:56 18:35 18:35 WBC 13.70 H (4.8-10.8) K/uL RBC 3.93 L (4.7-6.1) M/uL Hgb 12.4 L (14.0-18.0) g/dL Hct 36.2 L (42-52) % MCV 92.1 (80-100) fL MCH 31.6 (25-34) pg MCHC 34.3 (32-36) g/dL RDW Std Deviation 41.8 (36.4-46.3) fL RDW Coeff of Cecily 12.3 (11.5-14.5) % Plt Count 179 (130-400) K/uL MPV 9.0 (7.4-10.4) fL Immature Gran % (Auto) % Neut % (Auto) % Lymph % (Auto) % Allen % (Auto) % Eos % (Auto) % Baso % (Auto) % Immature Gran # (Auto) (0.00-0.02) K/uL Neut # (Auto) (1.4-6.5) K/uL Lymph # (Auto) (1.2-3.4) K/uL Allen # (Auto) (0.11-0.59) K/uL Eos # (Auto) (0-0.5) K/uL Baso # (Auto) (0-0.2) K/uL Sodium 138 (136-145) mmol/L Potassium 3.9 (3.5-5.1) mmol/L Chloride 104 (98-107) mmol/L Carbon Dioxide 26 (21-32) mmol/L Anion Gap 8.0 (3-11) BUN 22 H (7-18) mg/dl Creatinine 0.99 (0.6-1.4) mg/dl Est Cr Clr Drug Dosing 66.2 ml/min Est GFR ( Amer) 90.3 Est GFR (Non-Af Amer) 77.9 BUN/Creatinine Ratio 21.7 H (10-20) Glucose 146 H (70-99) mg/dl Calcium 8.6 (8.5-10.1) mg/dl Magnesium 1.9 (1.8-2.4) mg/dl Troponin I < 0.015 < 0.015 (0-0.045) ng/ml Specimen Hemolysis
--- NOTE | 2018-04-23 12:35 | Orthopedic Progress Note ---
Date of Service April 23, 2018 Assessment & Plan (1) Neurogenic claudication due to lumbar spinal stenosis: Status post lumbar decompression fusion. Plan at this time is to continue physical therapy as tolerated. We will monitor his MARIA LUZ output. He is can return to the orthopedic floor when okay with medicine. Present on Admission?: Yes Subjective Patient's back pain is well controlled leg symptoms markedly improved. Physical Exam 2 Vital Signs (Past 24 Hours): Last Vital Signs Temp 37.0 C 04/23/18 11:04 Pulse 72 04/23/18 11:04 Resp 19 04/23/18 11:04 BP 123/73 04/23/18 11:04 Pulse Ox 96 04/23/18 11:04 Physical Exam: Patient is sitting in the chair at the bedside. Is quite comfortable. Is good strength testing.
[2018-04-23] MEDS: TRAMADOL HCL 50 MG TABLET PO PRN (20:54)
[2018-04-23] MEDS: DOCUSATE SODIUM/SENNA 50/8.6MG TAB PO SCH (20:56)
[2018-04-24 05:52] LABS: Hematocrit (blood only) 34.8 % (42-52); Hemoglobin 11.5 g/dL (14.0-18.0); Mean Corpuscular Volume 94.1 fL (80-100); Mean Platelet Volume 9.5 fL (7.4-10.4); Platelet Count 188 K/uL (130-400); RDW Coefficient of Variation 12.8 % (11.5-14.5); RDW Standard Deviation 44.1 fL (36.4-46.3); White Blood Count 12.06 K/uL (4.8-10.8)
[2018-04-24] MEDS: TRAMADOL HCL 50 MG TABLET PO PRN ×4 (06:19→23:46)
[2018-04-24] MEDS: POLYETHYLENE (MIRALAX) 17 GM PACK PO SCH ×4 (06:20→23:47)
[2018-04-24 06:28] LABS: BUN Creatinine Ratio 28.2 (10-20); Calcium 8.5 mg/dl (8.5-10.1); Est GFR (African American) 94.9; Est GFR (Non-African American) 81.9; Magnesium 2.3 mg/dl (1.8-2.4); Potassium 4.3 mmol/L (3.5-5.1)
[2018-04-24] MEDS: ATORVASTATIN 40 MG TAB PO SCH (08:34)
[2018-04-24] MEDS: GABAPENTIN 300 MG CAP PO SCH ×3 (08:34→20:32)
[2018-04-24] MEDS: LISINOPRIL 10 MG TAB PO SCH (08:34)
[2018-04-24] MEDS: METOPROLOL TARTRATE 25 MG TAB PO SCH ×2 (08:34→20:32)
[2018-04-24] MEDS: hydroCHLOROthiazide 25 MG TAB PO SCH (08:34)
[2018-04-24] MEDS: MULTIVITAMIN TAB PO SCH (08:35)
[2018-04-24] MEDS: ASPIRIN 81 MG ECTAB PO SCH (08:35)
--- NOTE | 2018-04-24 10:00 | Cardiology Progress Note ---
Date of Service April 24, 2018 Assessment & Plan (1) Atrial fibrillation with RVR: I have not seen any definite atrial fibrillation. Certainly no sustained atrial fibrillation. Based on the absence of documented atrial arrhythmias I do not believe he requires any anticoagulation or additional evaluation during this hospitalization. (2) Left ventricular systolic dysfunction: LV systolic dysfunction he was noted to have some mildly reduced LV systolic function on echocardiography yesterday. He certainly does not have symptoms currently of ischemic heart disease, although he may have occult ischemic heart disease. He does not have symptoms consistent with congestive heart failure. Based on mildly reduced LV function and a history of atrial ectopy, it would seem reasonable to prescribe beta blockade. He should follow- up with cardiology on an outpatient basis for continued monitoring and therapy. Subjective This morning patient claims to be feeling well. He does have some stiffness with ambulation. Overall, his pain seems to be well-controlled. He denied any sense of palpitation. No chest pain. No breathing difficulty. Physical Exam 2 Vital Signs (Past 24 Hours): Last Vital Signs Temp 37.0 C 04/24/18 07:55 Pulse 95 H 04/24/18 07:55 Resp 20 04/24/18 07:55 BP 118/67 04/24/18 07:55 Pulse Ox 95 04/24/18 07:55 Physical Exam: The patient is alert and oriented. Mood and affect appeared normal. He answered all questions appropriately. HEENT: Pupils are equal and reactive to light and accommodation. Extraocular movements are intact. The sclerae are anicteric. Neuro: Cranial nerves intact Neck: Patient's neck is supple. Cardiac: Heart demonstrates a regular rate and rhythm. Normal S1 and S2. No murmurs on examination. Pulses: The patient has palpable radial pulses bilaterally that are equal in intensity Results & Data Laboratory Results Abnormal Lab Results 04/24/18 04/24/18 05:13 05:13 WBC 12.06 H RBC 3.70 L Hgb 11.5 L Hct 34.8 L MCV 94.1 MCH 31.1 MCHC 33.0 RDW Std Deviation 44.1 RDW Coeff of Cecily 12.8 Plt Count 188 MPV 9.5 Sodium 138 Potassium 4.3 Chloride 105 Carbon Dioxide 31 Anion Gap 2.0 L BUN 27 H Creatinine 0.95 Est Cr Clr Drug Dosing 69.0 Est GFR ( Amer) 94.9 Est GFR (Non-Af Amer) 81.9 BUN/Creatinine Ratio 28.2 H Glucose 86 Calcium 8.5 Magnesium 2.3 ECG Additional Comments: Telemetry did not reveal any atrial arrhythmias. No atrial fibrillation.
--- NOTE | 2018-04-24 13:05 | Hospitalist Progress Note ---
Date of Service April 24, 2018 Assessment & Plan (1) Neurogenic claudication due to lumbar spinal stenosis: - S/p lumbar fusion on 04/22/18, POD#2. - Pain management per primary team. - Monitor CBC qAM to evaluate for blood loss. - PT/OT ordered - plan for discharge to home. - Continue Gabapentin 300 mg TID. (2) Atrial fibrillation with RVR: - Developed ?A. fib with RVR post operatively; has no documented h/o A. fib. - Has remained in NSR on monitor; will downgrade to med/surg. - TTE showed EF 40-45%, grade I diastolic dysfunction. - Trop negative x 2; repeat EKG showed sinus rhythm with frequent PVCs. - Started Metoprolol 25 mg BID; decrease dose to 12.5 mg BID due to borderline hypotension. - Consulted cardiology, is not confirmed A. fib -- anticoagulation therapy not indicated, can continue BB. (3) Chronic combined systolic and diastolic heart failure: - TTE showed EF 40-45%, grade I diastolic dysfunction. - On BB as noted above. - Monitor weights and I/O's. (4) Acute respiratory failure with hypoxia: - Weaned to room air. - Continue to monitor. (5) Hyperlipidemia: - Continue Lipitor & Aspirin as prescribed. (6) Hypertension: - Continue HCTZ and Lisinopril. - Started Metoprolol as noted above; will decrease dose to 12.5 mg BID due to borderline hypotension. (7) Prostate cancer: - Diagnosed ~15 years ago. (8) DVT prophylaxis: - Per primary team. Dispo: Will continue to follow, please call with any questions. Supervising Physician Co-Signing Physician Notes Attending Attestation - Chart reviewed in detail, and care plan d/w NATE Gómez. I agree w/ the larkin components of her documentation. Pt remains hemodynamically stable with acceptable labs. No signs of decompensated CHF. Cardiology recommending follow-up after discharge due to wall motion abnormalities on echo. Our team will continue to follow. Berny Orozco MD Subjective Pt. is doing well overall. He has not had a BM since admission, will monitor. Pain in lower back well controlled. Has pain in neck, ice applied this morning. Has remained in NSR on telemetry, will downgrade to med/surg. Review of Systems All systems reviewed & are unremarkable except as noted in HPI & below Constitutional: no fever, no chills and no weakness Respiratory: no cough and no dyspnea Cardiovascular: no chest pain, no palpitations and no edema Gastrointestinal: + constipation; no abdominal pain, no nausea and no vomiting Genitourinary (Male): no difficulty urinating Musculoskeletal: + back pain and + neck pain Allergy / Immunological: no rash Physical Exam 2 Vital Signs (Past 24 Hours): Last Vital Signs Temp 37.0 C 04/24/18 07:55 Pulse 95 H 04/24/18 07:55 Resp 20 04/24/18 07:55 BP 118/67 04/24/18 07:55 Pulse Ox 95 04/24/18 07:55 Physical Exam: General: Resting comfortably in no apparent distress HEENT: NC/AT; PERRLA with EOMI; [place] conjunctiva, MMM. Neck: Supple and nontender Cardiac: Regular rate and rhythm. Lungs: CTA bilaterally; No rhonchi, wheezing, or rales Abdomen: Bowel normoactive X 4; Nontender to palpation Extremities: Warm. No edema present Neuro: No focal weakness Skin: Dressing on lower back, did not examine site. Results & Data Laboratory Results 04/24/18 04/24/18 Range/Units 05:13 05:13 WBC 12.06 H (4.8-10.8) K/uL RBC 3.70 L (4.7-6.1) M/uL Hgb 11.5 L (14.0-18.0) g/dL Hct 34.8 L (42-52) % MCV 94.1 (80-100) fL MCH 31.1 (25-34) pg MCHC 33.0 (32-36) g/dL RDW Std Deviation 44.1 (36.4-46.3) fL RDW Coeff of Cecily 12.8 (11.5-14.5) % Plt Count 188 (130-400) K/uL MPV 9.5 (7.4-10.4) fL Sodium 138 (136-145) mmol/L Potassium 4.3 (3.5-5.1) mmol/L Chloride 105 (98-107) mmol/L Carbon Dioxide 31 (21-32) mmol/L Anion Gap 2.0 L (3-11) BUN 27 H (7-18) mg/dl Creatinine 0.95 (0.6-1.4) mg/dl Est Cr Clr Drug Dosing 69.0 ml/min Est GFR ( Amer) 94.9 Est GFR (Non-Af Amer) 81.9 BUN/Creatinine Ratio 28.2 H (10-20) Glucose 86 (70-99) mg/dl Calcium 8.5 (8.5-10.1) mg/dl Magnesium 2.3 (1.8-2.4) mg/dl
--- NOTE | 2018-04-24 14:23 | Orthopedic Progress Note ---
Date of Service April 24, 2018 Assessment & Plan (1) Neurogenic claudication due to lumbar spinal stenosis: We will continue physical therapy today. Ambulate as tolerated. Most likely discharge home tomorrow. Present on Admission?: Yes Subjective Back pain is controlled leg pain markedly improved. Physical Exam 2 Vital Signs (Past 24 Hours): Last Vital Signs Temp 37.0 C 04/24/18 07:55 Pulse 95 H 04/24/18 07:55 Resp 20 04/24/18 07:55 BP 118/67 04/24/18 07:55 Pulse Ox 95 04/24/18 07:55 Physical Exam: Patient is good strength testing appears comfortable.
[2018-04-24] MEDS: DOCUSATE SODIUM/SENNA 50/8.6MG TAB PO SCH (20:45)
[2018-04-25] MEDS: POLYETHYLENE (MIRALAX) 17 GM PACK PO SCH (05:42)
[2018-04-25 06:01] LABS: Hematocrit (blood only) 35.4 % (42-52); Hemoglobin 11.7 g/dL (14.0-18.0)
[2018-04-25 06:11] LABS: BUN Creatinine Ratio 32.6 (10-20); Calcium 8.8 mg/dl (8.5-10.1); Est GFR (African American) 89.2; Potassium 4.4 mmol/L (3.5-5.1)
[2018-04-25] MEDS: TRAMADOL HCL 50 MG TABLET PO PRN (07:36)
[2018-04-25] MEDS: GABAPENTIN 300 MG CAP PO SCH (07:37)
[2018-04-25] MEDS: METOPROLOL TARTRATE 25 MG TAB PO SCH (07:37)
[2018-04-25] MEDS: LISINOPRIL 10 MG TAB PO SCH (07:37)
[2018-04-25] MEDS: MULTIVITAMIN TAB PO SCH (07:37)
[2018-04-25] MEDS: ASPIRIN 81 MG ECTAB PO SCH (07:38)
[2018-04-25] MEDS: hydroCHLOROthiazide 25 MG TAB PO SCH (07:38)
[2018-04-25] MEDS: ATORVASTATIN 40 MG TAB PO SCH (07:38)
--- NOTE | 2018-04-25 08:42 | Discharge Summary ---
Date of Service April 25, 2018 Admission HPI Per Admitting Provider This is a 59-year-old male with chronic persistent back and leg pain that is failed extensive course of nonoperative care and is here for surgical intervention. Principal Diagnosis Lumbar spinal stenosis Discharge Data Allergies Allergy/AdvReac Type Severity Reaction Status Date / Time No Known Allergies Allergy Verified 04/22/18 07:59 Consultations 04/22/18 17:46 Consult Case Management - Discharge Planning Routine Consult Hospitalist Routine 04/22/18 18:14 Consult Cardiology Routine Procedures Performed Operation Date: 04/22/18 09:35 Actual Procedures p L4-L5 Decompression and Fusion(Not Applicable) - Inocencio Arciniega DO Ordered Studies 04/22/18 09:35 FL fluoroscopy <1hr Routine FL lumbar spine 2-3V Routine Hospital Course (1) Neurogenic claudication due to lumbar spinal stenosis: Patient underwent lumbar decompression fusion. Postoperatively he was taken to the ICU secondary to some concern regarding dysrhythmia. This was sorted. Cardiology determined not to be an issue. He subsequently brought to the orthopedic floor. He progressed appropriately throughout his stay [facility] drain decreasing appropriately. Leg pain markedly improved. Subsequent discharge home. Discharge orders and instructions on the chart for further review. Total Time Total Time Spent Total Time Spent (In Minutes): Not applicable Discharge Plan Discharge Items Patient Disposition: Home - Self-Care Reason For Visit: Spinal Stenosis, Lumbar Region without Neurogenic Discharge Diagnosis: lumbar stenosis Discharge Goals: Increase independence Activity: Per 'Additional Instructions' section Non-emergency contact: Primary Care Provider Call non-emergency contact if: you have any medication questions Follow-up/Referrals: Leonel Ceja DO [Primary Care Provider] - Diet: Regular Addtl Provider Instructions: ACTIVITY RECOMMENDATIONS: SELF CARE INSTRUCTIONS AFTER THORACIC/LUMBAR FUSIONS 1. You may walk to your tolerance. It is good exercise for your legs and back. Expect some back and intermittent leg aches and pains. 2. You may perform "counter-top" level activities (make a sandwich, mony with a project, etc.). 3. No bending or lifting of more than 10 pounds or back twisting of any nature (roll like a log when turning in bed). 4. You may ride in a car for 20-30 minutes at a time. No driving until after your first visit with your doctor. 5. Frequent changes of position and restricting sitting to 30 minutes at a time will help limit the amount of back spasms and stiffness you may experience. 6. You may discontinue the use of ambulatory aids (cane, crutches, etc.) once your strength and confidence allow. 7. You may cellulose insulation helper the shower and let water strike your incision when you arrive home at least once daily. Do not take a tub bath, sit in a hot tub or go into a swimming pool until after your first recheck in the office. SPECIAL CARE INSTRUCTIONS: VERY IMPORTANT TO READ AND REVIEW A. Your surgical incision has been closed with a cosmetic suture under the skin that will dissolve in about 6 weeks. In 14 days, you can use a pair of clean scissors and cut the suture that is left outside of the skin at the ends of your incision. 1. The small skin tapes can be removed 7 days after surgery if they have not fallen off by that point. 2. You may keep the wound open to air as much as possible to promote healing after post-op day number 5 unless told otherwise by your doctor. 3. If you think the wound looks like it is becoming infected (redness or worsening drainage) and/or you are experiencing fever, chill or worsening back pain and muscle spasms, contact the office so that we may evaluate you as soon as possible. B. Complications are uncommon, but please contact us if you have any signs or symptoms of: 1. wound infection (fever higher than 102.5 degrees F, redness, separation of wound, drainage, or increasing pain from the incision) 2. blood clots in legs (pain, swelling, redness and warmth in legs) 3. urinary tract infection (fever higher than 102.5 degrees F, burning upon urination or increased frequency of urination) 4. nerve problems (inability to walk on your toes or heels, numbness, loss of bowel or bladder control) 5. any other symptoms that concern you C. Please call the office at if you have any concerns or questions about your operation or recovery. D. No smoking! Smoking drastically decreases the chance of a solid fusion. E. Do not take any anti-inflammatory medications (Indocin, Advil, Motrin, Aspirin, Naprosyn, etc.) as these may inhibit the chance of a solid fusion. Tylenol is okay to take for pain. MANAGING PAIN AFTER SPINAL SURGERY 1. Narcotic medication is intended for short-term use and will be provided for surgical pain. Surgical pain usually lasts for a period of 4-6 weeks. Narcotic medication includes Percocet, Vicodin, Darvocet, Tylenol #3 or Lortab. 2. Longer-term pain is more appropriately treated with non-narcotic medication such as Tylenol ES. 3. Muscle spasm is not appropriately treated with narcotics. Muscle relaxers such as Soma, Flexeril or Skelaxin can be used along with Tylenol ES. 4. Remember that we all live with some "aches and pains". This is not unusual or uncommon after an injury or as we get older. a. Back pain is expected and may include muscle spasms for 4 to 6 weeks after surgery. The pain should gradually improve. If the pain worsens for no apparent reason, please contact the office. b. Intermittent leg pain may also be experienced and should not be concerned about unless it worsens for no apparent reason. If so, please contact the office. 5. We will provide appropriate medication within the normal guidelines of their prescribed use. We will also be very cautious and aware of potential abuse and extended duration of patients' medication needs. a. Pain medications are for your comfort and to assist with sleep and rest so that the tissue can heal. They are not provided in order to return to normal activity and should not be used through the day. To do so or worsening pain at night can result from ongoing tissue damage and development of tolerance to the prescribed medicine. 6. Please allow 2-3 days to process refills. Prescriptions will not be mailed but must be picked up at the office. FOLLOW UP VISIT: Keep your scheduled follow-up appointment. Any questions, please call the office at . Prescriptions: New hydrocodone-acetaminophen [Elbe] 5-325 mg Tablet 1 tab PO Q6H PRN (Reason: pain) Qty: 30 RF: 0 tramadol 50 mg Tablet 50 mg PO Q4H PRN (Reason: Pain) Qty: 30 RF: 0 Continue multivitamin Tablet 1 tab PO DAILY RF: 0 atorvastatin [Lipitor] 40 mg Tablet 40 mg PO QAM RF: 0 hydrocodone-acetaminophen [Elbe] 5-325 mg Tablet 1 tab PO Q6H PRN (Reason: Pain) RF: 0 aspirin [Aspirin Low Dose] 81 mg Tablet,Delayed Release (Dr/Ec) 81 mg PO DAILY RF: 0 lisinopril 10 mg Tablet 10 mg PO QAM RF: 0 gabapentin 300 mg Capsule 300 mg PO TID RF: 0 hydrochlorothiazide 25 mg Tablet 25 mg PO QAM RF: 0 turmeric 400 mg Capsule 400 mg PO DAILY RF: 0 Stand-Alone Forms: [facility] Discharge Orders: Discharge Order (Routine); Ordered 04/25/18 Ordered By: Inocencio Arciniega Admission Data Admit Date/Time: 04/22/18 17:03 Attending Provider: Inocencio Arciniega Admit Provider: Inocencio Arciniega Primary Care Provider: Leonel Ceja Other Providers: Renetta Chapman ; Jay Krishna ; Enzo Onofre Service: Surgical Services
--- NOTE | 2018-04-25 11:11 | Hospitalist Progress Note ---
Date of Service April 25, 2018 Assessment & Plan (1) Neurogenic claudication due to lumbar spinal stenosis: - S/p lumbar fusion on 04/22/18, POD#3. - Pain management per primary team. - Monitor CBC qAM, H/H has been stable. - PT/OT - discharge to home. - Continue Gabapentin 300 mg TID. (2) Atrial fibrillation with RVR: - Developed ?A. fib with RVR post operatively; has no documented h/o A. fib. - In NSR on monitor; HR was regular on exam today. - TTE showed EF 40-45%, grade I diastolic dysfunction. - Trop negative x 2; repeat EKG showed sinus rhythm with frequent PVCs. - Started Metoprolol 25 mg BID; decreased dose to 12.5 mg BID due to hypotension. - Consulted cardiology, is not confirmed A. fib -- anticoagulation therapy not indicated, can continue BB. (3) Chronic combined systolic and diastolic heart failure: - TTE showed EF 40-45%, grade I diastolic dysfunction. - On BB as noted above. - Monitor weights and I/O's. (4) Acute respiratory failure with hypoxia: - Weaned to room air. - Continue to monitor. (5) Hyperlipidemia: - Continue Lipitor & Aspirin as prescribed. (6) Hypertension: - Continue HCTZ and Lisinopril. - Started Metoprolol as noted above. (7) Prostate cancer: - Diagnosed ~15 years ago. (8) DVT prophylaxis: - Per primary team. Dispo: Discharge today, doing well. Supervising Physician Co-Signing Physician Notes Attending Attestation - Chart reviewed in detail, and care plan d/w NATE Gómez. I agree w/ the larkin components of her documentation. Pt to be d/c home today. Agree with bowel regimen. Despite no bowel movement he has had no bloating/nausea/vomiting that would suggest ileus. Patient will need cardiology follow-up after discharge due to depressed LV function & wall motion abnormality. Continue asa, beta solitario, and ESTELITA. Berny Orozco MD Subjective Pt. doing well today, no acute issues. Denies chest pain, SOB, palpitations, LE edema. Has mild pain in back at incision site. Has not had a BM since admission -- advised him to take stool softeners at home along with Miralax prn. Will be discharged to home this morning. Review of Systems All systems reviewed & are unremarkable except as noted in HPI & below Constitutional: no fever, no chills and no weakness Respiratory: no cough and no dyspnea Cardiovascular: no chest pain, no palpitations and no edema Gastrointestinal: + constipation; no abdominal pain and no nausea Genitourinary (Male): no difficulty urinating Musculoskeletal: + back pain Allergy / Immunological: no rash Physical Exam 2 Vital Signs (Past 24 Hours): Last Vital Signs Temp 37.2 C 04/25/18 09:04 Pulse 90 04/25/18 09:04 Resp 16 04/25/18 09:04 BP 104/69 04/25/18 09:04 Pulse Ox 95 04/25/18 09:04 Physical Exam: General: Resting comfortably in no apparent distress HEENT: NC/AT; PERRLA with EOMI; [place] conjunctiva, MMM. Neck: Supple and nontender Cardiac: Regular rate and rhythm. Lungs: CTA bilaterally; No rhonchi, wheezing, or rales Abdomen: Bowel normoactive X 4; Nontender to palpation Extremities: Warm. No edema present Neuro: No focal weakness Skin: Dressing on lower back, did not examine site. Results & Data Laboratory Results 04/25/18 04/25/18 Range/Units 05:24 05:24 Hgb 11.7 L (14.0-18.0) g/dL Hct 35.4 L (42-52) % Sodium 134 L (136-145) mmol/L Potassium 4.4 (3.5-5.1) mmol/L Chloride 100 (98-107) mmol/L Carbon Dioxide 30 (21-32) mmol/L Anion Gap 4.0 (3-11) BUN 32 H (7-18) mg/dl Creatinine 1.00 (0.6-1.4) mg/dl Est Cr Clr Drug Dosing 65.0 ml/min Est GFR ( Amer) 89.2 Est GFR (Non-Af Amer) 77.0 BUN/Creatinine Ratio 32.6 H (10-20) Glucose 99 (70-99) mg/dl Calcium 8.8 (8.5-10.1) mg/dl
== END 2018-04-25 11:40 | disposition home or self-care (01) | DRG 453 ==
LOC: ASU 07:33 → 2E 17:03 → 3W 04-24 11:00
DX: I10 Essential (primary) hypertension; E78.5 Hyperlipidemia, unspecified; I48.91 Unspecified atrial fibrillation; Z85.46 Personal history of malignant neoplasm of prostate; M48.062 Spinal stenosis, lumbar region with neurogenic claudication; Z83.3 Family history of diabetes mellitus; J96.01 Acute respiratory failure with hypoxia